=== PATIENT | female | born 1965 ===

== ENCOUNTER 2016-09-05 15:04 | Outpatient (CLI) | payer OTHER | END 2016-09-05 15:05 | disposition home or self-care (01) | LOC: LABHHL 15:04 | PROVIDERS: ATTEND Obstetrics & Gynecology | DX: N84.0 Polyp of corpus uteri (principal) | CPT/HCPCS: 88305 ==

== ENCOUNTER 2016-09-20 08:13 | Outpatient (CLI) | payer OTHER ==
--- NOTE | 2016-09-20 15:32 | Cat Scan Report ---
CT ABDOMEN AND PELVIS WITHOUT AND WITH CONTRAST: 09/20/16 08:13:00 CLINICAL: Acute postoperative pain. Left lower quadrant pain. Status post hysteroscopy and ablation. COMPARISON: None TECHNIQUE: Volumetric acquisition and 1.25 millimeter scan reconstructions without contrast and after the uneventful intravenous injection of 100 cc Omnipaque 300. Consent was obtained prior to the administration of contrast. Oral contrast was also given. FINDINGS: Abdomen: Clear lung bases. Normal liver, gallbladder and bile ducts. Normal stomach, duodenum, pancreas and spleen. Normal adrenal glands and kidneys. The renal collecting systems and ureters are nondilated. Normal aorta and IVC. Normal small bowel. Normal ascending colon and transverse colon. Mild diverticulosis of the descending colon and no signs of diverticulitis. The appendix is normal. No pneumoperitoneum or ascites. No lymphadenopathy. Pelvis: The uterus measures 9.0 cm in length by 4.7 cm AP dimension by 6.4 cm transverse dimension. Normal uterine contour with no fibroid identified. The uterine cavity is distended with fluid. Irregular hypodensities in the right paracervical region measuring 2.3 x 2.0 x 2.5 cm. No air is identified within the hypodensities. There is a 1 cm right-sided nabothian cyst. Normal ovaries with a 2.0 cm dominant follicle of the right ovary. Normal urinary bladder and rectum. Bone windows demonstrate no suspicious bone lesion. IMPRESSION:1. Nonspecific fluid in the uterine cavity. No air to suggest endometritis. 2. Right paracervical small hypodensities are uncertain significance. Possibilities include hematoma and early abscess formation. 3. Normal ovaries. 4. Mild diverticulosis of the left colon but no signs of diverticulitis. 5. Normal upper abdomen.
== END 2016-09-20 08:14 | disposition home or self-care (01) ==
LOC: SPVIMAG 08:13
PROVIDERS: ATTEND Obstetrics & Gynecology
DX: K57.30 Diverticulosis of large intestine without perforation or abscess without bleeding (principal); G89.18 Other acute postprocedural pain; N88.8 Other specified noninflammatory disorders of cervix uteri
CPT/HCPCS: 74178; Q9967